=== PATIENT | male | born 2000 | race Two or more races ===

== ENCOUNTER 2020-07-11 15:52 | Emergency (ER) | payer OTHER, SELFPAY ==
[2020-07-11 16:11] VITALS: BP 130/77; PULSE 120; RESP 18; TEMP 37.3; O2SAT 99
[2020-07-11 16:12] VITALS: BP 130/77; PULSE 120; RESP 18; TEMP 37.3; O2SAT 99
--- NOTE | 2020-07-11 16:29 | ED.ABDPAIN ---
HPI - Abdominal Pain General Chief Complaint: Abdominal Pain Stated Complaint: abd pain Source: patient and RN notes reviewed Mode of arrival: ambulatory History of Present Illness HPI narrative: This is a 20-year-old male that presented to urgent care today complaining of intermittent abdominal pain according to patient 4 days ago he ate spicy [place] food and developed abdominal pain. According to patient he took famotide and gasx with little relief. Patient notes that when he lies down his pain worsens. He says that he feels like his pain is in sync with his heartbeat..The patient denies SOB, CP, palpitation, extremity numbness, lightheadedness, dizziness, constipation, diarrhea, chills, or fever. At the time of this assessment patient does not have any pain with palpation. Patient instructed to eat a bland diet for couple of days and take PPI as instructed. He denies any blood in his stool or urine. Related Data Allergies Allergy/AdvReac Type Severity Reaction Status Date / Time No Known Allergies Allergy Verified 07/11/20 16:12 Review of Systems Review of Systems: All systems reviewed & are unremarkable except as noted in HPI and below (10 point system review) Exam Narrative: Exam Narrative: GENERAL: This is a well-nourished, well-developed patient, in no apparent distress. HEAD: normocephalic, atraumatic. EYES: PERRL. Sclera clear/white. Vision is grossly intact. EARS: External ears normal, auditory canals clear and without drainage, TMs normal without perforation. Hearing grossly intact. NOSE: External nose normal with no obvious nasal discharge, nares without redness, no rhinorrhea. THROAT: Mucous membranes moist, posterior pharynx clear. NECK: Neck supple, non-tender without lymphadenopathy, masses or thyromegaly. CARDIOVASCULAR: Regular rate and rhythm without murmurs, gallops, or rubs. RESPIRATORY: Clear to auscultation. Breath sounds equal bilaterally. No wheezes, rales, or rhonchi. GASTROINTESTINAL: Abdomen soft, non-tender, nondistended. Bowel sounds are active. No hepato-splenomegaly, or palpable masses. No guarding. SKIN: warm, intact with no suspicious lesions or rash, good texture and turgor. NEURO: awake, alert, and oriented to person, place and time. There were no obvious focal neurologic abnormalities. Steady gait EXTREMITIES: Normal range of motion. No edema. No calf tenderness. Negative Homans sign bilaterally. BACK: Nontender without deformity or crepitance. No flank tenderness. Course Vital Signs Vital signs: Vital Signs Temperature 99.1 F 07/11/20 16:11 Pulse Rate 120 H 07/11/20 16:11 Respiratory Rate 18 07/11/20 16:11 Blood Pressure 130/77 07/11/20 16:11 Pulse Oximetry 99 07/11/20 16:11 Temperature 99.1 F 07/11/20 16:12 Pulse Rate 120 H 07/11/20 16:12 Respiratory Rate 18 07/11/20 16:12 Blood Pressure 130/77 07/11/20 16:12 Pulse Oximetry 99 07/11/20 16:12 MDM - Abdominal Pain Differential Diagnosis Differential diagnosis: Likely abdominal pain, gastroenteritis, pancreatitis and other (GERD) Discharge Plan Discharge Clinical Impression: GERD (gastroesophageal reflux disease) Qualifiers: Esophagitis presence: without esophagitis Qualified Code(s): K21.9 - Gastro-esophageal reflux disease without esophagitis Patient Disposition: Home, Self-Care Condition: Stable Instructions: Antibiotic Form, GERD (Gastroesophageal Reflux Disease) (DC) Additional Instructions: Follow up with you Provider in 1-2 week if needed When do I need to call the doctor? Problem or pain when swallowing More throwing up or throwing up fluid that looks like blood or coffee grounds Pain in the chest or upper part of the belly Very bad heartburn that lasts for a long time Cough, hoarseness of voice, or bad breath Problem with breathing Weight loss or not wanting to eat Prescriptions: New pantoprazole 20 mg tablet,delayed release (DR/EC) 20 mg PO HS 28 Days Qty
== END 2020-07-11 16:30 | disposition home or self-care (01) ==
PROVIDERS: Emergency Provider Nurse Practitioner
DX: K21.9 Gastro-esophageal reflux disease without esophagitis (principal)
CPT/HCPCS: 99203; G0463